=== PATIENT | female | born 1995 | race African-American/Black ===

== ENCOUNTER 2021-03-13 19:23 | Emergency (ER) | payer OTHER ==
[~2021-03-13] VITALS: Ht 167.6 cm; Wt 88.8 kg
--- NOTE | 2021-03-13 19:39 | PHYS DOC ---
General Adult EDM: Chief Complaint: CHEST PAIN HPI: HPI: ".. I ve been having chest pain here on the rt. .. It been there some what constant... all day..,,,My mom had AR at age 50.... I am just getting worried about. ...it...' Patient is a 25 year old female who presents with above hx and complaints of chest pain, on right chest wall. Deep breaths sometimes exacerbate pain. Pain localized to the right pectoral area. Range of motion right arm does not seem to increase pain in right chest wall. No recent travel. No specific ill contacts. No history immunosuppression.. No history of trauma. No history of cardiac disorders or dysrhythmias Review of Systems: Review of Systems: Constitutional: Denies fever or chills Eyes: Denies change in visual acuity HENT: Denies nasal congestion or sore throat Respiratory: Denies cough or shortness of breath Cardiovascular: Complains of right chest wall pain GI: Denies abdominal pain, nausea, vomiting, bloody stools or diarrhea : Denies dysuria Musculoskeletal: Denies back pain or joint pain Integument: Denies rash Neurologic: Denies headache, focal weakness or sensory changes Endocrine: Denies polyuria or polydipsia Lymphatic: Denies swollen glands Psychiatric: Denies depression or anxiety Family History: Family History: Noncontributory Current Medications: Current Meds: See nursing for home meds Allergies: Allergies: No known drug allergies Physical Exam: PE: Constitutional: Well developed, well nourished, no acute distress, non-toxic appearance. [] HENT: Normocephalic, atraumatic, bilateral external ears normal, oropharynx moist, no oral exudates, nose normal. [] Eyes: PERRLA, EOMI, conjunctiva normal, no discharge. [] Neck: Normal range of motion, no tenderness, supple, no stridor. [] Cardiovascular:Heart rate regular rhythm, no murmur [] Lungs & Thorax: Bilateral breath sounds equal at apex on auscultation [] Abdomen: Bowel sounds normal, soft, no tenderness, no masses, no pulsatile masses. [] Skin: Warm, dry, no erythema, no rash. [] Back: No tenderness, no CVA tenderness. [] Extremities: No tenderness, no cyanosis, no clubbing, ROM intact, no edema. No cording. Neurologic: Alert and oriented X 3, normal motor function, normal sensory function, no focal deficits noted. [] Psychologic: Affect anxious, judgement normal, mood normal. [] EKG: EKG: My interpretation EKG shows sinus rhythm 87 bpm no acute morphology. This EKG at 1951 hrs. [] Radiology/Procedures: Radiology/Procedures: [][address] [id number] IMAGING REPORT Signed PATIENT: VASQUEZ NAYLOR ACCOUNT: [id number] : 1995 LOCATION: ER AGE: 25 SEX: F EXAM STATUS: PRE ER ORD. PHYSICIAN: MILAD FLORES MD REASON: cp PROCEDURE: PORTABLE CHEST 1V Exam: Chest one view INDICATION: Chest pain TECHNIQUE: Frontal view of the chest Comparisons: None FINDINGS: The cardiomediastinal silhouette and pulmonary vessels are within normal limits. The lung and pleural spaces are clear. IMPRESSION: No acute cardiopulmonary process. Electronically signed by: Diane Dupree MD (03/13/2021 8:21 PM) [facility] DICTATED AND SIGNED BY: DIANE DUPREE MD DATE: 03/13/212019 CC: MILAD FLORES MD; NON,STAFF ~MTH0 0 Heart Score: C/O Chest Pain: Yes HEART Score for Chest Pain: HEART Score for Chest Pain Response (Comments) Value History Slighlty/Non-Suspicious 0 ECG Normal 0 Age < 45 0 Risk Factors No Risk Factors 0 Troponin < Normal Limit 0 Total 0 Risk Factors: Risk Factors: DM, Current or recent (<one month) smoker, HTN, HLP, family history of CAD, obesity. Risk Scores: Score 0 - 3: 2.5% MACE over next 6 weeks - Discharge Home Score 4 - 6: 20.3% MACE over next 6 weeks - Admit for Clinical Observation Score 7 - 10: 72.7% MACE over next 6 weeks - Early Invasive Strategies Course & Med Decision Making: Course & Med Decision Making Pertinent Labs and Imaging studies reviewed. (See chart for details) Pt. reports chest pain has resolved at 21:30 hrs. Take a daily aspirin. Follow-up primary care. Consider outpatient stress testing. Take Tylenol and ibuprofen for pain. Impression: 1. Chest pain-chest wall or atypical chest pain [] Dragon Disclaimer: Miladon Disclaimer: This electronic medical record was generated, in whole or in part, using a voice recognition dictation system. Departure Departure: Referrals: NON,STAFF (PCP) Brittany Disclaimer This chart was dictated in whole or in part using Voice Recognition software in a busy, high-work load, and often noisy Emergency Department environment. It may contain unintended and wholly unrecognized errors or omissions. MILAD FLORES MD Mar 13, 2021 19:38
[2021-03-13] MEDS ORDERED: ASPIRIN CHEWABLE 81 MG TABLET. PO ONE (19:45)
[2021-03-13] MEDS ORDERED: IV RINGERS SOLUTION,LACTATED 1,000 ML IV SCH (19:45)
[2021-03-13 20:00] LABS: BASO % 0 % (0-3); EOS # 0.2 x10^3/uL (0.0-0.7); EOS % 2 % (0-3); HEMATOCRIT 40.2 % (36.0-47.0); HEMOGLOBIN 13.4 g/dL (12.0-15.5); LYMPH # 2.4 x10^3/uL (1.0-4.8); LYMPH % 28 % (24-48); MEAN CORPUSCULAR HEMOGLOBIN 30 pg (25-35); MEAN CORPUSCULAR HGB CONC 34 g/dL (31-37); MEAN CORPUSCULAR VOLUME 89 fL (79-100); MONO # 0.5 x10^3/uL (0.0-1.1); MONO % 6 % (0-9); NEUT # 5.4 x10^3uL (1.8-7.7); NEUT % 64 % (31-73); PLATELET COUNT 272 x10^3/uL (140-400); RED CELL DISTRIBUTION WIDTH 13.9 % (11.5-14.5); WHITE BLOOD COUNT 8.6 x10^3/uL (4.0-11.0)
[2021-03-13 20:06] LABS: CALCIUM 10.5 mg/dL (8.5-10.1); CREATININE 0.9 mg/dL (0.6-1.0); GFR 76.9; POTASSIUM 4.1 mmol/L (3.5-5.1)
[2021-03-13 20:14] LABS: BARBITURATES NEG (NEG); BENZODIAZEPINES NEG (NEG); CANNABINOIDS NEG (NEG); COCAINE NEG (NEG); METHADONE NEG (NEG); OPIATES NEG (NEG); PHENCYCLIDINE NEG (NEG)
[2021-03-13 20:15] LABS: AMPHETAMINE/METHAMPHETAMINE NEG (NEG)
[2021-03-13 20:19] LABS: ALBUMIN 4.6 g/dL (3.4-5.0); DIRECT BILIRUBIN 0.1 mg/dL (0.0-0.2); TOTAL BILIRUBIN 0.5 mg/dL (0.2-1.0); TOTAL PROTEIN 8.2 g/dL (6.4-8.2)
--- NOTE | 2021-03-13 20:23 | RAD ---
Exam: Chest one view INDICATION: Chest pain TECHNIQUE: Frontal view of the chest Comparisons: None FINDINGS: The cardiomediastinal silhouette and pulmonary vessels are within normal limits. The lung and pleural spaces are clear. IMPRESSION: No acute cardiopulmonary process. Electronically signed by: Diane Self MD (03/13/2021 8:21 PM) JACI
[2021-03-13 20:26] LABS: BILIRUBIN,URINE NEG (NEG); CLARITY,URINE CLEAR; COLOR,URINE STRAW; GLUCOSE,URINE NEG (NEG); NITRITE,URINE NEG (NEG); UROBILINOGEN,URINE 0.2 mg/dL (0.2 mg/dL)
[2021-03-13 20:27] LABS: BACTERIA,URINE 0 /HPF (0-FEW); RBC,URINE 0 /HPF (0-2); WBC,URINE 0 /HPF (0-4)
[2021-03-13] MEDS ORDERED: KETOROLAC 30 MG/ML VIAL. IVP ONE (20:30)
[2021-03-13 21:47] VITALS: BP 132/73
--- NOTE | 2021-03-13 22:59 | EKG ---
[address] [address] Test Date: 2021-03-13 Test Time: 19:51:48 Pat Name: VASQUEZ NAYLOR Department: Room: Gender: F Baker Bench: ATA : 1995 Requested By: MILAD FLORES Order Number: [id number] Reading MD: Measurements Intervals [place] Rate: 87 P: 52 MN: 172 QRS: 61 QRSD: 72 T: 54 QT: 372 QTc: 454 Interpretive Statements SINUS RHYTHM NORMAL ECG RI6.02 No previous ECG available for comparison
== END 2021-03-13 21:50 | disposition home or self-care (01) ==
LOC: ER 19:23
DX: R07.89 Other chest pain (principal)
CPT/HCPCS: 36415; 71045; 80048; 80076; 80307; 81001; 81025; 82550; 83690; 83735; 83880; 84443; 84484; 85025; 85379; 85610; 85730; 93005; 96360; 99285; J7120

== ENCOUNTER 2021-05-15 18:12 | Inpatient (IN) | payer OTHER ==
[~2021-05-15] VITALS: Ht 167.6 cm; Wt 84.1 kg
[2021-05-15] MEDS ORDERED: ONDANSETRON PF 4 MG/2 ML VIAL. IVP ONE (19:15)
[2021-05-15 19:30] LABS: BASO % 0 % (0-3); EOS % 0 % (0-3); HEMATOCRIT 37.8 % (36.0-47.0); HEMOGLOBIN 12.5 g/dL (12.0-15.5); LYMPH # 1.8 x10^3/uL (1.0-4.8); LYMPH % 14 % (24-48); MEAN CORPUSCULAR HEMOGLOBIN 29 pg (25-35); MEAN CORPUSCULAR HGB CONC 33 g/dL (31-37); MEAN CORPUSCULAR VOLUME 88 fL (79-100); MONO # 0.9 x10^3/uL (0.0-1.1); MONO % 7 % (0-9); NEUT # 10.6 x10^3uL (1.8-7.7); NEUT % 80 % (31-73); PLATELET COUNT 229 x10^3/uL (140-400); RED BLOOD COUNT 4.28 x10^6/uL (3.50-5.40); RED CELL DISTRIBUTION WIDTH 13.2 % (11.5-14.5); WHITE BLOOD COUNT 13.4 x10^3/uL (4.0-11.0)
[2021-05-15 19:37] LABS: CALCIUM 9.3 mg/dL (8.5-10.1); CREATININE 0.9 mg/dL (0.6-1.0); GFR 93.1; POTASSIUM 3.6 mmol/L (3.5-5.1)
[2021-05-15 19:42] LABS: ALBUMIN 4.1 g/dL (3.4-5.0); TOTAL BILIRUBIN 0.7 mg/dL (0.2-1.0); TOTAL PROTEIN 8.4 g/dL (6.4-8.2)
[2021-05-15 19:57] LABS: BACTERIA,URINE FEW /HPF (0-FEW); BILIRUBIN,URINE NEG (NEG); CLARITY,URINE CLEAR; COLOR,URINE YELLOW; GLUCOSE,URINE NEG (NEG); NITRITE,URINE NEG (NEG); RBC,URINE 0 /HPF (0-2); UROBILINOGEN,URINE 0.2 mg/dL (0.2 mg/dL)
[2021-05-15 19:58] LABS: SQUAMOUS EPITHELIAL CELL,UR FEW /LPF
--- NOTE | 2021-05-15 20:28 | RAD ---
CT ABDOMEN+PELVIS WO History: Right lower quadrant/flank pain. Comparison: None. Technique: CT of the abdomen and pelvis without contrast. Findings: The lung bases are clear. The unenhanced liver and gallbladder are unremarkable. The spleen is at the upper limits of normal measuring 12.8 cm AP by 9.6 cm craniocaudal the pancreas and adrenal glands a re unremarkable. There is no hydronephrosis or nephrolithiasis. The stomach is unremarkable. The small bowel is within normal limits. The appendix is long, approxima tely 6 mm diameter, extending posteriorly and inferiorly terminating at the right pelvic cul-de-sac. The proximal sections are air-filled, distally there is no dilation. There is trace adjacent free flu id which likely represents physiologic cul-de-sac fluid. Colon is within normal limits. No abdominope lvic adenopathy. Major vasculature is unremarkable. The uterus is unremarkable. There is normal-appearing the osseous structures and soft tissues are unr emarkable. Bilateral ovarian follicular activity. Trace fluid in the pelvic cul-de-sac as above. Impression: 1. Appendix is long, measures the upper limits of normal diameter, approximately 6 mm and tracks pos teriorly to the pelvic cul-de-sac with a there is a small amount of free fluid adjacent to the nondil ated tip. This likely represents normal physiologic pelvic cul-de-sac fluid. An early tip appendiciti s is not excluded. Recommend correlation with exam and close clinical follow-up. ------ Exposure: One or more of the following individualized dose reduction techniques were utilized for thi s examination: 1. Automated exposure control 2. Adjustment of the mA and/or kV according to patient size 3. Use of iterative reconstruction technique. Electronically signed by: Jose J Luis MD (05/15/2021 8:26 PM) [facility]
--- NOTE | 2021-05-15 21:27 | PHYS DOC ---
Past History Past Surgical History: Alcohol Use: None Adult General Chief Complaint Chief Complaint: ABDOMINAL PAIN HPI HPI Patient is a 25-year-old female who presents with a day of right lower quadrant and right flank pain, 6 out of 10, sharp in nature with mild nausea but no vomiting that she is never had before. States the only surgery she is ever had is a section. Denies any recent traumas, travels, illnesses, fevers, chest pain, shortness of breath, dysuria, hematuria, blood in the stool or diarrhea. Denies any history of STIs, vaginal bleeding, vaginal discharge or pain, genital lesions. Review of Systems Review of Systems Review of systems otherwise unremarkable except noted in HPI Current Medications Current Medications Current Medications Medications (Trade) Dose Ordered Sig/Katheryn Start Time Stop Time Status Last Admin Dose Admin Fentanyl Citrate (Fentanyl 2ml Vial) 25 mcg 1X ONCE 05/15/21 19:15 05/15/21 19:16 DC 05/15/21 19:26 25 MCG Ondansetron HCl (Zofran) 4 mg 1X ONCE 05/15/21 19:15 05/15/21 19:16 DC 05/15/21 19:25 4 MG Allergies Allergies Allergies Coded Allergies Type Severity Reaction Last Updated Verified ketorolac Allergy Unknown 05/15/21 Yes Physical Exam Physical Exam And no guarding Constitutional: Well developed, well nourished, no acute distress, non-toxic appearance. [] HENT: Normocephalic, atraumatic, bilateral external ears normal, oropharynx moist, no oral exudates, nose normal. [] Eyes: conjunctiva normal, no discharge. [] Neck: Normal range of motion, no tenderness, supple, no stridor. [] Cardiovascular:Heart rate regular rhythm, no murmur [] Lungs & Thorax: Bilateral breath sounds clear to auscultation [] Abdomen: soft, mild right lower quadrant tenderness with, no masses, no pulsatile masses. [] Skin: Warm, dry, no erythema, no rash. [] Back: no CVA tenderness. [] Extremities: No tenderness, no cyanosis, no clubbing, ROM intact, no edema. [] Neurologic: Alert and oriented X 3, normal motor function, normal sensory function, no focal deficits noted. [] Psychologic: Affect normal, judgement normal, mood normal. [] Current Patient Data Vital Signs Vital Signs Date Time Temp Pulse Resp B/P (MAP) Pulse Ox O2 Delivery O2 Flow Rate FiO2 05/15/21 19:29 91 16 109/58 (75) 100 Room Air 05/15/21 18:39 98.6 Lab Results Laboratory Tests Test 05/15/21 18:50 White Blood Count 13.4 x10^3/uL (4.0-11.0) H Red Blood Count 4.28 x10^6/uL (3.50-5.40) Hemoglobin 12.5 g/dL (12.0-15.5) Hematocrit 37.8 % (36.0-47.0) Mean Corpuscular Volume 88 fL (79-100) Mean Corpuscular Hemoglobin 29 pg (25-35) Mean Corpuscular Hemoglobin Concent 33 g/dL (31-37) Red Cell Distribution Width 13.2 % (11.5-14.5) Platelet Count 229 x10^3/uL (140-400) Neutrophils (%) (Auto) 80 % (31-73) H Lymphocytes (%) (Auto) 14 % (24-48) L Monocytes (%) (Auto) 7 % (0-9) Eosinophils (%) (Auto) 0 % (0-3) Basophils (%) (Auto) 0 % (0-3) Neutrophils # (Auto) 10.6 x10^3uL (1.8-7.7) H Lymphocytes # (Auto) 1.8 x10^3/uL (1.0-4.8) Monocytes # (Auto) 0.9 x10^3/uL (0.0-1.1) Eosinophils # (Auto) 0.0 x10^3/uL (0.0-0.7) Basophils # (Auto) 0.0 x10^3/uL (0.0-0.2) Urine Collection Type Unknown Urine Color Yellow Urine Clarity Clear Urine pH 6.5 Urine Specific [place] 1.010 Urine Protein Neg (NEG-TRACE) Urine Glucose (UA) Neg mg/dL (NEG) Urine Ketones (Stick) 15 mg/dL (NEG) Urine Blood Neg (NEG) Urine Nitrite Neg (NEG) Urine Bilirubin Neg (NEG) Urine Urobilinogen Dipstick 0.2 mg/dL (0.2 mg/dL) Urine Leukocyte Esterase Neg (NEG) Urine RBC 0 /HPF (0-2) Urine WBC 1-4 /HPF (0-4) Urine Squamous Epithelial Cells Few /LPF Urine Bacteria Few /HPF (0-FEW) Sodium Level 136 mmol/L (136-145) Potassium Level 3.6 mmol/L (3.5-5.1) Chloride Level 100 mmol/L (98-107) Carbon Dioxide Level 24 mmol/L (21-32) Anion Gap 12 (6-14) Blood Urea Nitrogen 10 mg/dL (7-20) Creatinine 0.9 mg/dL (0.6-1.0) Estimated GFR (Cockcroft-Gault) 93.1 BUN/Creatinine Ratio 11 (6-20) Glucose Level 93 mg/dL (70-99) Calcium Level 9.3 mg/dL (8.5-10.1) Total Bilirubin 0.7 mg/dL (0.2-1.0) Aspartate Amino Transferase (AST) 17 U/L (15-37) Alanine Aminotransferase (ALT) 27 U/L (14-59) Alkaline Phosphatase 101 U/L (46-116) Total Protein 8.4 g/dL (6.4-8.2) H Albumin 4.1 g/dL (3.4-5.0) Albumin/Globulin Ratio 1.0 (1.0-1.7) Lipase 45 U/L (73-393) L EKG EKG [] Radiology/Procedures Radiology/Procedures []T ABDOMEN+PELVIS WO History: Right lower quadrant/flank pain. Comparison: None. Technique: CT of the abdomen and pelvis without contrast. Findings: The lung bases are clear. The unenhanced liver and gallbladder are unremarkable. The spleen is at the upper limits of normal measuring 12.8 cm AP by 9.6 cm craniocaudal the pancreas and adrenal glands are unremarkable. There is no hydronephrosis or nephrolithiasis. The stomach is unremarkable. The small bowel is within normal limits. The appendix is long, approximately 6 mm diameter, extending posteriorly and inferiorly terminating at the right pelvic cul-de-sac. The proximal sections are air-filled, distally there is no dilation. There is trace adjacent free fluid which likely represents physiologic cul-de-sac fluid. Colon is within normal limits. No abdominopelvic adenopathy. Major vasculature is unremarkable. The uterus is unremarkable. There is normal-appearing the osseous structures and soft tissues are unremarkable. Bilateral ovarian follicular activity. Trace fluid in the pelvic cul-de-sac as above. Impression: 1. Appendix is long, measures the upper limits of normal diameter, appr oximately 6 mm and tracks posteriorly to the pelvic cul-de-sac with a there is a small amount of free fluid adjacent to the nondilated tip. This likely represents normal physiologic pelvic cul-de-sac fluid. An early tip appendicitis is not excluded. Recommend correlation with exam and close clinical follow-up. ------ Exposure: One or more of the following individualized dose reduction techniques were utilized for this examination: 1. Automated exposure control 2. Adjustment of the mA and/or kV according to patient size 3. Use of iterative reconstruction technique. Electronically signed by: Jose J Luis MD (05/15/2021 8:26 PM) [facility] Heart Score C/O Chest Pain: No Risk Factors: Risk Factors: DM, Current or recent (<one month) smoker, HTN, HLP, family history of CAD, obesity. Risk Scores: Risk Factors: DM, Current or recent (<one month) smoker, HTN, HLP, family history of CAD, obesity. Course & Med Decision Making Course & Med Decision Making Patient is a 25-year-old female presents with right lower quadrant and right flank abdominal pain Vital signs not concerning. Physical exam noted above. Given Zofran for nausea and fentanyl for pain. Laboratory analysis not concerning. CT with possible early tip appendicitis. Given this and patient's exam concern for very early appendicitis. Start patient on antibiotics. Continue known IV fluid resuscitation with D5 normal saline. Given the CT read of only an early tip appendicitis not excluded, decided to admit patient to the hospital for continued evaluation and management including repeat labs and imaging in the morning. Patient grateful, verbalized understanding agreed with plan of admission and continue evaluation for appendicitis. Dragon Disclaimer Dragon Disclaimer This electronic medical record was generated, in whole or in part, using a voice recognition dictation system. Departure Departure: Impression: Primary Impression: Right lower quadrant pain Additional Impression: Appendicitis Disposition: ADMITTED INPATIENT Admitting Physician: Na Rouse Condition: STABLE Referrals: NON,STAFF (PCP) Problem Qualifiers HUONG TELLEZ MD May 15, 2021 21:26
[2021-05-15] MEDS ORDERED: IV DEXTROSE 5% - 0.9 % NACL 1,000 ML IV ONE (21:30)
[2021-05-15] MEDS ORDERED: PIPERACILLIN/TAZOBACTAM 3.375 GM in IV NORMAL SALINE 50ML 50 ML IV ONE (21:30)
[2021-05-15] MEDS ORDERED: PIPERACILLIN/TAZOBACTAM 3.375 GM VIAL IV ONE (21:32)
[2021-05-15] MEDS ORDERED: IV NORMAL SALINE 50ML 50 ML ONE (21:32)
[2021-05-15] MEDS ORDERED: ONDANSETRON PF 4 MG/2 ML VIAL. IVP PRN (22:15)
[2021-05-15] MEDS ORDERED: MORPHINE SULFATE 4 MG/ML DISP.SYRIN. IVP PRN (22:15)
[2021-05-15 22:45] VITALS: BP 130/79
--- NOTE | 2021-05-15 22:45 | NUR ---
Pt admitted to ICU bed 5 from ER via [facility], accompanied by EMS and nursing staff. Pt self transferred from [facility] to bed independently. Pt here for c/o nausea and Abd. pain, r/o early appendicitis. Pt has been experiencing Abd. pain since last night with nausea, denies vomiting. Pt lives at home with family. SCDs for VTE. Pt has not received her Covid vaccine. Pt was swabbed for Covid (both rapid and PCR) r/t being a possible surgical case, rapid was negative. POC reviewed with pt, understanding verbalized. Pt was given written information regarding hospital policies, unit procedures and contact persons. Valuables were checked and left at bedside. Pt's Rocío is deployed in the , stated that the [place] might call us for pt information incase he needs to come back if she has to have surgery. Dr Rouse paged for admit orders and returned call, orders received. Pt to have repeat CT Abd./Pel in AM.
[2021-05-15] MEDS: IV DEXTROSE 5% - 0.9 % NACL 1,000 ML IV SCH (23:05)
[2021-05-16] MEDS ORDERED: PIPERACILLIN/TAZOBACTAM 3.375 GM in IV NORMAL SALINE 50ML 50 ML IV SCH
[2021-05-16] MEDS ORDERED: ACETAMINOPHEN 325 MG TABLET PO PRN (02:00)
[2021-05-16] MEDS: PIPERACILLIN/TAZOBACTAM 3.375 GM in IV NORMAL SALINE 50ML 50 ML IV SCH ×3 (03:48→16:00)
[2021-05-16 03:50] VITALS: BP 107/57
--- NOTE | 2021-05-16 06:05 | NUR ---
Pt slept okay during night. Pt did have fever of 101.2 around 0200, PO Tylenol given. Pt afebrile this AM at 98.9. Pt remains NPO, will have repeat CT Abd/Pel this AM. Pt up to bathroom this AM to void without difficulty. Pt denied need for pain or nausea medications at this time.
[2021-05-16 06:25] VITALS: BP 111/71
[2021-05-16] MEDS: IV DEXTROSE 5% - 0.9 % NACL 1,000 ML IV SCH (06:45)
[2021-05-16 07:07] LABS: BASO % 0 % (0-3); EOS % 0 % (0-3); HEMATOCRIT 33.7 % (36.0-47.0); HEMOGLOBIN 11.1 g/dL (12.0-15.5); LYMPH # 1.8 x10^3/uL (1.0-4.8); LYMPH % 16 % (24-48); MEAN CORPUSCULAR HEMOGLOBIN 29 pg (25-35); MEAN CORPUSCULAR HGB CONC 33 g/dL (31-37); MEAN CORPUSCULAR VOLUME 89 fL (79-100); MONO % 9 % (0-9); NEUT # 8.7 x10^3uL (1.8-7.7); NEUT % 76 % (31-73); PLATELET COUNT 211 x10^3/uL (140-400); RED BLOOD COUNT 3.79 x10^6/uL (3.50-5.40); RED CELL DISTRIBUTION WIDTH 13.3 % (11.5-14.5); WHITE BLOOD COUNT 11.5 x10^3/uL (4.0-11.0)
[2021-05-16 07:23] LABS: ALBUMIN 3.3 g/dL (3.4-5.0); ALBUMIN/GLOBULIN RATIO 0.9 (1.0-1.7); CALCIUM 8.5 mg/dL (8.5-10.1); CREATININE 0.9 mg/dL (0.6-1.0); GFR 93.1; POTASSIUM 3.9 mmol/L (3.5-5.1); TOTAL BILIRUBIN 0.6 mg/dL (0.2-1.0); TOTAL PROTEIN 7.1 g/dL (6.4-8.2)
--- NOTE | 2021-05-16 08:03 | RAD ---
INDICATION: Reason: repeat to see if there is progression of the appendicitis / Spl. Instructions: PT ON ANTIBIOTICS SINCE LAST CT / History: COMPARISON: May 15, 2021 CT TECHNIQUE: Axial CT images were obtained through the abdomen and pelvis with intravenous contrast. One or more of the following individualized dose reduction techniques were utilized for this examinat ion: 1. Automated exposure control; 2. Adjustment of the mA and/or kV according to patient size; 3 . Use of iterative reconstruction technique. FINDINGS: Vascular: No abdominal aortic aneurysm. Hepatobiliary: No intrahepatic biliary duct dilation. Pancreas: No peripancreatic edema. Spleen: Mildly prominent in size. Renal: No hydronephrosis. Bladder: Partially distended Gastrointestinal: The appendix again appears elongated and borderline in size measuring approximately 7 mm. No dilated loops of bowel to suggest obstruction. IMPRESSION: * Repeat demonstration of borderline dilated appendix measuring up to about 7 mm. Portion of the ap pendix now appears fluid-filled rather than an air-filled without definitive new adjacent region of i nflammatory changes. Electronically signed by: Steven Regalado MD (05/16/2021 8:01 AM) [id number]
[2021-05-16] MEDS ORDERED: LACTOBACILLUS RHAMNOSUS GG 1 CAPSULE. PO SCH (09:00)
[2021-05-16 10:24] VITALS: BP 111/66
[2021-05-16 14:37] VITALS: BP 129/75
--- NOTE | 2021-05-16 17:01 | SSS ---
ADMIT DATE: 05/15/2021 HISTORY OF PRESENT ILLNESS: The patient is a 25-year-old -[place] female patient who presented to the Emergency Room of [facility] with a complaint of abdominal pain, mostly in the right lower quadrant, rated as 6/10 in severity, sharp in nature, associated with some nausea, but no vomiting. She has never had similar complaints before. She states the only surgery she had before was section. Denied any recent trauma, travel, illness, fever, chest pain, shortness of breath. She denied any dysuria, frequency or hematuria. Her last period was about 3 weeks ago. She has had lab work done, showed that her white cell count was high at 13,400. Her chemistry was unremarkable. CT scan of the abdomen and pelvis showed that the patient's appendix is long, measuring the upper limit of normal, diameter approximately 6 mm and tracks posteriorly in the pelvic cul-de-sac. There is a small amount of free fluid adjacent to the nondilated tip. This likely represents normal physiologic pelvic cul-de-sac fluid and early tip appendicitis is not excluded. I recommended correlation with exam and close clinical followup. Given the unclear finding on the CT scan, I have a discussion with the ER physician, and the plan was for her to [facility], to keep her n.p.o., start her on IV fluid and IV antibiotic, consult the surgeon; however, the patient ended up at [facility] where we continued the same treatment, kept her n.p.o., and we did repeat her CT scan of the abdomen, which basically showed that CT scan redemonstration of borderline dilated appendix, measuring up to about 7 mm. A portion of the appendix now appears to be fluid filled rather than air filled without definitive new adjacent region of inflammatory changes. I did speak with Dr. Nguyen, who recommended transferring the patient to [facility] to be evaluated surgically. Of note, the patient did spike a temperature last night up to 101.2 and today, she continued to complain of pain in the right lower quadrant, but denied any nausea or vomiting. She did pass gas, but no bowel movement. PAST MEDICAL HISTORY: Unremarkable. PAST SURGICAL HISTORY: Significant for . ALLERGIES: SHE IS ALLERGIC TO TORADOL. MEDICATIONS: She is on Tylenol [id number] as needed. FAMILY HISTORY: She has 3 brothers, older and healthy. Her father at age of 39 because of committing suicide and mother at age of 39 because of . SOCIAL HISTORY: She is , has 1 son that is 15 months old. She smoked briefly when she was 19 years old, quit smoking since then. She does not drink alcohol or use recreational drugs. 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 REVIEW OF SYSTEMS: As per history of present illness. PHYSICAL EXAMINATION: GENERAL: On arrival to the Emergency Room, the patient looked well and was clearly in no apparent respiratory distress. No pallor, jaundice, cyanosis or thyromegaly. No jugular venous distention. No lower limb edema. VITAL SIGNS: Her heart rate was 92, blood pressure 128/73, her temperature was 98.6, respiratory rate was 18 and oxygen saturation was 99% on room air. HEAD, EYES, EARS, NOSE, AND THROAT: Showed normocephalic, atraumatic. NECK: Supple. HEART: Showed normal first and second heart sounds, no gallop or murmur. CHEST: Clear to auscultation. No crepitation or rhonchi. ABDOMEN: Slightly distended, soft with tenderness mostly in the right lower quadrant. There is definitely no guarding or rigidity. No organomegaly. Bowel sounds are normal. NEUROLOGIC: She is grossly intact. LABORATORY DATA: On arrival to the Emergency Room, her white cell count was 13,400, her hemoglobin was 12.5, hematocrit 37.8, MCV 88 and platelet count of 229,000 with a manual differential showed 80% polymorphs, 14% lymphocytes and significant monocytes. Her serum sodium was 136, potassium 3.6, chloride 100, bicarbonate 24, anion gap of 12, BUN 10, creatinine 0.9. Estimated GFR was 93 mL per minute. Her glucose was 93, calcium was 9.3. Total bilirubin, AST, ALT, alkaline phosphatase were normal. Total protein 8.4, albumin was 4.1 and lipase was 45. Her urinalysis essentially unremarkable, was negative for leukocyte esterase, no rbc's, no wbc's and no bacteria. Her CT scan of the abdomen done in the Emergency Room showed appendix is long, measuring at the upper limit of normal in diameter and approximately 6 mm and tracks posteriorly to the pelvic cul-de-sac, where there is a small amount of free fluid adjacent to the nondilated tip. This likely represents normal physiological pelvic cul-de-sac fluid and early tip appendicitis is not excluded. HOSPITAL COURSE: The patient was admitted to the [facility] and was started on IV fluid, kept n.p.o., continued with IV antibiotic, pain medication and antiemetic. When I saw her today, she is continuing to have some mild right lower quadrant pain, did spike a temperature last night up to 101.2. She denied any nausea or vomiting. Denied any chills, rigors. She passed gas, but no bowel movement. When I examined her this afternoon, she looked well and was clearly in no apparent respiratory distress. Her heart rate was 89, blood pressure is 111/66, temperature 98.1, respiratory rate was 18 and oxygen saturation was 98% on room air. The abdominal examination showed it slightly distended, soft with tenderness mostly in the right lower quadrant. Her lab work showed a white cell count that is down to 11,500, hemoglobin 11, hematocrit 33, MCV 89 and platelet count 211,000. Her chemistry showed a serum sodium 138, potassium 3.9, her chloride 105, bicarbonate was 26, anion gap of 7, BUN 7, creatinine 0.9. Estimated GFR was 93 mL per minute. Her glucose 100, calcium was 8.5. Total bilirubin, AST, ALT, alkaline phosphatase were normal. Total protein 7.1, albumin was 3.3. Repeat scan again showed that the CT scan demonstrated borderline dilated appendix measuring up to about 7 mm. A portion of the appendix now appears to be fluid filled rather than air filled without definitive new adjacent region of inflammatory changes. PLAN: To transfer the [facility] to [facility] and I have discussed the case with Dr. Nguyen, who recommended transferring the patient for further evaluation and treatment. SHIRA/DANNY DR: Janette TID: [id number]
--- NOTE | 2021-05-16 17:13 | NUR ---
TRANSFER Pt transferred to [facility] for surgical consult and higher level of care. Report given to LYNETTE Strickland. Pt transported via EMS to [facility] room 418 at 1700. All paperwork and consents sent with EMS personnel. LYNETTE ANDREWS
== END 2021-05-16 17:00 | disposition short-term general hospital (02) | DRG 395 ==
LOC: ER 18:12 → ICU 22:04
PROVIDERS: ADMIT Internal Medicine; ATTEND Internal Medicine
DX: K35.80 Unspecified acute appendicitis (principal); Z87.891 Personal history of nicotine dependence; Z98.891 History of uterine scar from previous surgery; Z88.8 Allergy status to other drugs, medicaments and biological substances
CPT/HCPCS: 36415; 74176; 80053; 81001; 83690; 85025; 87426; 96374; 96375; 96376; J2405; J2543; J3010; J7042; U0003; 99285-25